=== PATIENT | male | born 1990 | race Caucasian/White ===

== ENCOUNTER 2017-12-16 00:21 | Emergency (ER) | payer SELFPAY ==
[~2017-12-16] VITALS: Ht 172.7 cm; Wt 56.7 kg
[2017-12-16] MEDS ORDERED: NS IV 1000 ML 1,000 ML IV STA (00:29)
[2017-12-16] MEDS ORDERED: KETOROLAC 30 MG/ML VIAL IVP STA (00:29)
[2017-12-16] MEDS ORDERED: ONDANSETRON 4 MG/2 ML (SDV) Z0FRAN IVP ONE ×2 (00:30→02:00)
[2017-12-16 00:40] LABS: BASOPHILS # (AUTO) 0.1 10^3/uL (0.0-0.1); BASOPHILS % (AUTO) 1 % (0-10); EOSINOPHILS % (AUTO) 0 % (0-10); HEMATOCRIT 40 % (40-54); HEMOGLOBIN 14.4 G/DL (13.3-17.7); LYMPHOCYTES # (AUTO) 1.1 X 10^3 (1.0-4.0); LYMPHOCYTES % (AUTO) 11 % (12-44); MEAN CORPUSCULAR HEMOGLOBIN 30 PG (25-34); MEAN CORPUSCULAR HGB CONC 36 G/DL (32-36); MEAN CORPUSCULAR VOLUME 84 FL (80-99); MEAN PLATELET VOLUME 9.5 FL (7.4-10.4); MONOCYTES # (AUTO) 1.3 X 10^3 (0.0-1.0); MONOCYTES % (AUTO) 14 % (0-12); NEUTROPHILS # (AUTO) 7.3 X 10^3 (1.8-7.8); NEUTROPHILS % (AUTO) 75 % (42-75); PLATELET COUNT 303 10^3/uL (130-400); RED BLOOD COUNT 4.79 10^6/uL (4.35-5.85); RED CELL DISTRIBUTION WIDTH 12.4 % (10.0-14.5); WHITE BLOOD COUNT 9.8 10^3/uL (4.3-11.0)
--- NOTE | 2017-12-16 00:55 | ED Abdominal Pain ---
General Chief Complaint: Abdominal/GI Problems Stated Complaint: NAUSEA,VOMING,DIARRHEA,FEVER Nursing Triage Note: PT PRESENTS TO ER WITH COMPLAINT OF ABD PAIN AND DIARRHEA SINCE MONDAY. DENIES ANY BLOOD IN STOOL. Sepsis Screen: No Definite Risk Source of Information: Patient Exam Limitations: No Limitations History of Present Illness Date Seen by Provider: Dec 16, 2017 Time Seen by Provider: 00:22 Initial Comments Here with report of lower abdominal pain for the last 4 days. Multiple days of diarrhea that is watery. Denies blood in his stool. Denies dysuria. Is able to drink but has had nausea but no vomiting. Pain is worsening now to the right side. Timing/Duration: 3-4 Days Severity/Quality: Moderate, Aching Location: RLQ, LLQ Radiation: Flank Activities at Onset: None Modifying Factors: Worsens With Eating, Worsens With Movement Associated Symptoms: Back Pain, Fever/Chills, Nausea/Vomiting Allergies and Home Medications Allergies Coded Allergies: No Known Drug Allergies (Unverified , 12/16/17) Patient Home Medication List Home Medication List Reviewed: Yes Review of Systems Review of Systems Constitutional: see HPI, chills, dizziness, fever EENTM: No Symptoms Reported Respiratory: No Symptoms Reported Cardiovascular: No Symptoms Reported Gastrointestinal: See HPI, Abdominal Pain, Diarrhea, Nausea; Denies Vomiting Genitourinary: No Symptoms Reported Musculoskeletal: no symptoms reported Skin: no symptoms reported Psychiatric/Neurological: No Symptoms Reported All Other Systems Reviewed Negative Unless Noted: Yes Past Mflwima-Vmddza-Xxizba Hx Past Med/Social Hx: Reviewed Nursing Past Med/Soc Hx Patient Social History Alcohol Use: Denies Use Recreational Drug Use: No Type Used: Electronic/Vapor Recent Foreign Travel: No Contact w/Someone Who Travel: No Recent Infectious Disease Expo: No Recent Hopitalizations: No Immunizations Up To Date Tetanus Booster (TDap): Unknown PED Vaccines UTD: Yes Seasonal Allergies Seasonal Allergies: No Past Medical History Surgeries: No Respiratory: No Cardiac: No Neurological: No Genitourinary: No Gastrointestinal: No Musculoskeletal: No Endocrine: No HEENT: No Cancer: No Psychosocial: No Integumentary: No Blood Disorders: No Family Medical History Reviewed Nursing Family Hx No Pertinent Family Hx Physical Exam Vital Signs Vital Signs - First Documented 12/16/17 00:33 Temp 100.2 Pulse 99 Resp 26 B/P (MAP) 118/83 (95) Pulse Ox 100 O2 Delivery Room Air Capillary Refill : Less Than 3 Seconds Height/Weight/BMI Height: 5'8.00" Weight: 125lbs. oz. [id number]; BMI Method:Stated General Appearance: WD/WN, no apparent distress HEENT: PERRL/EOMI, pharynx normal Neck: full range of motion, supple Respiratory: lungs clear, normal breath sounds, no respiratory distress Cardiovascular: no murmur, tachycardia Peripheral Pulses: 2+ Dorsalis Pedis (R), 2+ Left Dors-Pedis (L), 2+ Radial Pulses (R), 2+ Radial Pulses (L) Gastrointestinal: soft; No guarding, No rebound; tenderness (bilateral lower quadrants) Extremities: non-tender, normal inspection Back: normal inspection, no CVA tenderness, no vertebral tenderness Neurologic/Psychiatric: alert, oriented x 3 Skin: normal color, warm/dry Progress/Results/Core Measures Results/Orders Lab Results Laboratory Tests Test 12/16/17 00:33 12/16/17 02:43 Range/Units White Blood Count 9.8 4.3-11.0 10^3/uL Red Blood Count 4.79 4.35-5.85 10^6/uL Hemoglobin 14.4 13.3-17.7 G/DL Hematocrit 40 40-54 % Mean Corpuscular Volume 84 80-99 FL Mean Corpuscular Hemoglobin 30 25-34 PG Mean Corpuscular Hemoglobin Concent 36 32-36 G/DL Red Cell Distribution Width 12.4 10.0-14.5 % Platelet Count 303 130-400 10^3/uL Mean Platelet Volume 9.5 7.4-10.4 FL Neutrophils (%) (Auto) 75 42-75 % Lymphocytes (%) (Auto) 11 L 12-44 % Monocytes (%) (Auto) 14 H 0-12 % Eosinophils (%) (Auto) 0 0-10 % Basophils (%) (Auto) 1 0-10 % Neutrophils # (Auto) 7.3 1.8-7.8 X 10^3 Lymphocytes # (Auto) 1.1 1.0-4.0 X 10^3 Monocytes # (Auto) 1.3 H 0.0-1.0 X 10^3 Eosinophils # (Auto) 0.0 0.0-0.3 10^3/uL Basophils # (Auto) 0.1 0.0-0.1 10^3/uL Sodium Level 139 135-145 MMOL/L Potassium Level 3.4 L 3.6-5.0 MMOL/L Chloride Level 105 98-107 MMOL/L Carbon Dioxide Level 20 L 21-32 MMOL/L Anion Gap 14 5-14 MMOL/L Blood Urea Nitrogen 11 7-18 MG/DL Creatinine 0.96 0.60-1.30 MG/DL Estimat Glomerular Filtration Rate > 60 BUN/Creatinine Ratio 11 Glucose Level 117 H 70-105 MG/DL Calcium Level 9.9 8.5-10.1 MG/DL Corrected Calcium 9.5 8.5-10.1 MG/DL Total Bilirubin 0.5 0.1-1.0 MG/DL Aspartate Amino Transf (AST/SGOT) 16 5-34 U/L Alanine Aminotransferase (ALT/SGPT) 15 0-55 U/L Alkaline Phosphatase 61 40-136 U/L C-Reactive Protein High Sensitivity 2.63 H 0.00-0.50 MG/DL Total Protein 7.3 6.4-8.2 GM/DL Albumin 4.5 3.2-4.5 GM/DL Urine Color YELLOW Urine Clarity CLEAR Urine pH 8 5-9 Urine Specific [place] 1.010 L 1.016-1.022 Urine Protein 1+ H NEGATIVE Urine Glucose (UA) NEGATIVE NEGATIVE Urine Ketones NEGATIVE NEGATIVE Urine Nitrite NEGATIVE NEGATIVE Urine Bilirubin NEGATIVE NEGATIVE Urine Urobilinogen NORMAL NORMAL MG/DL Urine Leukocyte Esterase NEGATIVE NEGATIVE Urine RBC (Auto) NEGATIVE NEGATIVE Urine RBC NONE /HPF Urine WBC NONE /HPF Urine Squamous Epithelial Cells RARE /HPF Urine Crystals NONE /LPF Urine Bacteria NEGATIVE /HPF Urine Casts NONE /LPF Urine Mucus SMALL H /LPF Urine Culture Indicated NO My Orders Orders - LEONA PEREZ MD Cbc With Automated Diff (12/16/17 00:29) Comprehensive Metabolic Panel (12/16/17:29) Hs C Reactive Protein (12/16/17:29) Ua Culture If Indicated (12/16/17:29) Saline Lock/Iv-Start (12/16/17 00:29) Ondansetron Injection (Zofran Injectio (12/16/17 00:30) Ns Iv 1000 Ml (Sodium Chloride 0.9%) (12/16/17 00:29) Ketorolac Injection (Toradol Injection) (12/16/17 00:29) Ct Abd/Pelv W (Appendicitis) (12/16/17 01:25) Saline Lock/Iv-Start (12/16/17 01:34) Ns Iv 1000 Ml (Sodium Chloride 0.9%) (12/16/17 01:34) Ondansetron Injection (Zofran Injectio (12/16/17 02:00) Fentanyl Injection (Sublimaze Injection (12/16/17 01:50) Medications Given in ED Current Medications Medications Dose Ordered Sig/Philippe Route Start Time Stop Time Status Last Admin Dose Admin Ondansetron HCl 4 mg ONCE ONCE IVP 12/16/17 00:30 12/16/17 00:32 DC 12/16/17 00:50 4 MG Sodium Chloride 1,000 ml @ 0 mls/hr Q0M ONCE IV 12/16/17 01:34 12/16/17 01:35 DC 12/16/17 02:04 1,000 MLS/HR Vital Signs/I&O 12/16/17 00:33 Temp 100.2 Pulse 99 Resp 26 B/P (MAP) 118/83 (95) Pulse Ox 100 O2 Delivery Room Air Blood Pressure Mean: 95 Progress Progress Note : Progress Note Seen and evaluated. IV, labs, UA, normal saline 1 L bolus, Toradol 30 mg IV and Zofran 4 mg IV ordered. Monitor patient. Repeat normal saline [address] abdomen pelvis ordered due to persistence of pain. Patient does feel better after the Zofran Toradol though. 0310: UA was obtained and noted. CT results noted. Overall patient feels better. He will be sent home with Zofran go pack. Discharged home with return precautions. Patient verbalize understanding instructions and agreement with plan. Diagnostic Imaging Diagonstic Imaging: CT Plain Films/CT/US/NM/MRI: abdomen, pelvis Comments Mild mucosal thickening in the colon suggesting mild colitis. Mild thickening of the urinary bladder wall measuring 8 mm. Consider cystitis. Reviewed: Reviewed [place] Study, Reviewed by Me Departure Impression Primary Impression: Lower abdominal pain Additional Impression: Diarrhea Qualified Codes: R19.7 - Diarrhea, unspecified Disposition: 01 HOME, SELF-CARE Condition: Improved Departure-Patient Inst. Decision time for Depature: 03:13 Referrals: NO,LOCAL PHYSICIAN (PCP/Family) Primary Care Physician Patient Instructions: Acute Abdomen (Belly Pain), Adult (DC), Diarrhea in Adolescents and Adults Add. Discharge Instructions: All discharge instructions reviewed with patient and/or family. Voiced understanding. Clear liquid or light diet for 24 hours and then advance as tolerated. You may take Tylenol/acetaminophen 1000 mg every 8 hours as needed for pain or fever. Drink plenty of fluids. Follow up with your Dr. in a few days for recheck. Return for worse pain, fever, vomiting, weakness, breathing problems or other concerns as needed. LEONA PEREZ MD Dec 16, 2017 00:55
[2017-12-16 01:00] LABS: ALANINE AMINOTRANSFERASE 15 U/L (0-55); ALBUMIN 4.5 GM/DL (3.2-4.5); ALKALINE PHOSPHATASE 61 U/L (40-136); BILIRUBIN,TOTAL 0.5 MG/DL (0.1-1.0); BUN/CREATININE RATIO 11; CALCIUM 9.9 MG/DL (8.5-10.1); CARBON DIOXIDE 20 MMOL/L (21-32); CHLORIDE 105 MMOL/L (98-107); CREATININE SERUM 0.96 MG/DL (0.60-1.30); GFR ESTIMATED > 60; GLUCOSE 117 MG/DL (70-105); POTASSIUM 3.4 MMOL/L (3.6-5.0); SODIUM 139 MMOL/L (135-145); TOTAL PROTEIN 7.3 GM/DL (6.4-8.2)
[2017-12-16] MEDS ORDERED: NS IV 1000 ML 1,000 ML IV ONE (01:34)
[2017-12-16] MEDS ORDERED: fentaNYL INJECTION 100 MCG/2 ML AMP IVP STA (01:50)
[2017-12-16 02:49] LABS: BILIRUBIN,URINE NEGATIVE (NEGATIVE); CLARITY,URINE CLEAR; COLOR,URINE YELLOW; GLUCOSE, URINE (UA) NEGATIVE (NEGATIVE); KETONES,URINE NEGATIVE (NEGATIVE); LEUKOCYTE ESTERASE ,URINE NEGATIVE (NEGATIVE); NITRITE,URINE NEGATIVE (NEGATIVE); PH,URINE 8 (5-9); PROTEIN,URINE 1+ (NEGATIVE); UROBILINOGEN,URINE NORMAL (NORMAL)
[2017-12-16 02:57] LABS: BACTERIA,URINE NEGATIVE /HPF; SQUAMOUS EPITHELIAL CELL,UR RARE /HPF
[2017-12-16] MEDS ORDERED: RX-ONDANSETRON 4 MG ODT (ZOFRAN) PPK #4 ONE (03:14)
[2017-12-16] MEDS ORDERED: RX-ONDANSETRON 4 MG ODT (ZOFRAN) PPK #4 PO STA (03:16)
[2017-12-16 03:23] VITALS: BP 115/72
--- NOTE | 2017-12-16 06:27 | Diagnostic Imaging Report ---
PROCEDURE: CT abdomen and pelvis with contrast, rule out appendicitis. TECHNIQUE: Multiple contiguous axial images were obtained through the abdomen and pelvis after the administration of intravenous contrast. INDICATION: Abdominal pain. COMPARISON: None. FINDINGS: The liver, gallbladder, pancreas, spleen, adrenals, kidneys and collecting systems are negative. There is diffuse circumferential wall thickening of the bladder. Mild bowel wall thickening of the ascending and transverse colon. No evidence of bowel obstruction. No free intraperitoneal air or fluid. No lymphadenopathy. No evidence of appendicitis. No acute osseous findings. IMPRESSION: 1. Diffuse circumferential bladder wall thickening. 2. Mild bowel wall thickening of the ascending and transverse colon may represent a nonspecific colitis. Dictated by: Dictated on workstation # [id number]
== END 2017-12-16 03:23 | disposition home or self-care (01) ==
LOC: EDUNIT# 00:21 → ER 00:25
DX: R10.31 Right lower quadrant pain (principal); R10.32 Left lower quadrant pain; R19.7 Diarrhea, unspecified
CPT/HCPCS: 36415; 74177; 80053; 81000; 85025; 86141; 96374; 96375